=== PATIENT | female | born 1990 | race Caucasian/White ===

== ENCOUNTER 2023-12-10 12:04 | Outpatient (CLI) | payer OTHER, SELFPAY ==
--- NOTE | 2023-12-10 12:15 | CRLHL7_ITS ---
For Patients: As a result of the Cures Act, medical imaging exams and procedure reports are released immediately into your electronic medical record. You may view this report before your referring provider. If you have questions, please contact your health care provider. INDICATION: First trimester scan, establish dates. COMPARISON: None. TECHNIQUE: Real-time wheatley-scale imaging of the pelvis was performed. FINDINGS: Sonographic imaging demonstrates a single living intrauterine gestation. The embryo demonstrates a regular cardiac rate measuring 161 beats per minute. The embryo`s crown-rump length measurement of 1.5 cm corresponds to a gestational age of 7 weeks 6 days with a sonographic due date of 07/22/2024. There is a normal-appearing yolk sac. There are no gross abnormalities noted within the embryo at this early state of development. The gestational sac has a normal appearance. There is a 2.5 x 0.5 x 2.6 cm perigestational hemorrhage. The amount of fluid within the sac appears appropriate for gestational age. The cervix is closed. The myometrium appears normal. Simple right ovarian cyst is present measuring 3.0 cm. Normal left ovary. There are no suspicious fluid collections noted in the cul-de-sac. IMPRESSION: Single living intrauterine with sonographic gestational age 7 weeks 6 days and sonographic due date of 07/22/2024. Simple right ovarian cyst measuring 3 cm. Subchorionic hemorrhage measuring 2.5 x 0.5 x 2.6 cm. Dictated by Joao Brooks MD @ 12/11/2023 9:50:26 AM (Electronically Signed)
== END 2023-12-10 12:05 | disposition home or self-care (01) ==
PROVIDERS: Visit Provider Physician Assistant
DX: Z34.91 Encounter for supervision of normal pregnancy, unspecified, first trimester (principal); O34.81 Maternal care for other abnormalities of pelvic organs, first trimester; N83.201 Unspecified ovarian cyst, right side; O20.9 Hemorrhage in early pregnancy, unspecified; Z3A.01 Less than 8 weeks gestation of pregnancy
CPT/HCPCS: 76817; 82565; 82570; 84156; 84450; 84460; 84520; 86703; 86706; 86803; 86850; 86900; 86901; 87086; 87340; 87491; 87591

== ENCOUNTER 2023-12-10 13:18 | Outpatient (CLI) | payer OTHER, SELFPAY ==
[2023-12-10 18:57] LABS: Chlamydia DNA Amplified* NOT DETECTED (No Detected); GC DNA Amplified* NOT DETECTED (No Detected)
== END 2023-12-10 13:19 | disposition home or self-care (01) ==
PROVIDERS: Visit Provider Physician Assistant
DX: Z34.91 Encounter for supervision of normal pregnancy, unspecified, first trimester (principal)
CPT/HCPCS: 82565; 82570; 84156; 84450; 84460; 84520; 86592; 86703; 86704; 86706; 86762; 86787; 86803; 86850; 86900; 86901; 87086; 87340; 87491; 87591

== ENCOUNTER 2024-01-06 08:07 | Outpatient (CLI) | payer OTHER, SELFPAY | END 2024-01-06 08:08 | disposition home or self-care (01) | LOC: NFLDREF 01-08 19:44 | PROVIDERS: Visit Provider Physician Assistant | DX: Z34.91 Encounter for supervision of normal pregnancy, unspecified, first trimester (principal); Z3A.12 12 weeks gestation of pregnancy | CPT/HCPCS: 82570; 84156 ==

== ENCOUNTER 2024-01-07 14:25 | Outpatient (CLI) | payer OTHER, SELFPAY | END 2024-01-07 14:26 | disposition home or self-care (01) | LOC: NFLDREF 14:27 | PROVIDERS: Visit Provider Obstetrics & Gynecology | DX: Z13.88 Encounter for screening for disorder due to exposure to contaminants (principal) | CPT/HCPCS: 83655 ==

== ENCOUNTER 2024-03-03 13:56 | Outpatient (CLI) | payer BC, SELFPAY ==
--- NOTE | 2024-03-03 14:00 | CRLHL7_ITS ---
For Patients: As a result of the Century Cures Act, medical imaging exams and procedure reports are released immediately into your electronic medical record. You may view this report before your referring provider. If you have questions, please contact your health care provider. INDICATION: Evaluate anatomy. COMPARISON: 12/10/2023 TECHNIQUE: Real time wheatley scale imaging of the fetus was performed as well as color Doppler analysis of the umbilical vessels. FINDINGS: Sonographic imaging demonstrates a single living intrauterine gestation. Fetus demonstrates a regular cardiac rate of 155 beats per minute. Fetus has a variable position. The placenta lies anteriorly without evidence of placenta previa. Edge of the placenta 3.3 cm from the internal cervical os. Amniotic fluid volume appears normal. Single deepest vertical pocket: 4.6 cm. The cervix is closed and measures 5.0 cm in length. The composite ultrasound gestational age is calculated at 20 weeks 0 days with an estimated sonographic due date of 07/21/2024. The estimated weight is 320 grams which lies at the 25th %. The following biometric measurements were obtained: Biparietal diameter: 4.6 cm/19 weeks 6 days 32nd% Head circumference: 17.3 cm/19 weeks 6 days 23rd% Abdominal circumference: 14.4 cm/19 weeks 5 days 27th% Femur length: 3.2 cm/20 weeks 0 days 34th% The HC/AC ratio measures: 1.20 range (1.08-1.25) On anatomic survey, there is a normal appearance of the cerebral ventricles, cavum septi pellucidi, cisterna magna and cerebellum. The nose, lips, and facial profile appear normal. The cervical, thoracic and lumbar spine are well visualized and appear normal. Incomplete visualization of the four-chamber heart, RVOT and three-vessel trachea view. Normal LVOT the diaphragm and stomach appear normal. The kidneys and bladder also appear normal. There is a normal three-vessel cord and cord insertion site. The four extremities appear normal. IMPRESSION: Concordance of clinical and sonographic dating. Incomplete visualization of the four-chamber heart, RVOT and three-vessel trachea view. Short-term follow-up recommended. Remainder of the anatomic survey normal. Dictated by Joao Brooks MD @ 03/04/2024 1:28:31 PM (Electronically Signed)
== END 2024-03-03 13:57 | disposition home or self-care (01) ==
PROVIDERS: Visit Provider Obstetrics & Gynecology
DX: Z34.92 Encounter for supervision of normal pregnancy, unspecified, second trimester (principal); Z3A.20 20 weeks gestation of pregnancy
CPT/HCPCS: 76805

== ENCOUNTER 2024-03-04 19:22 | Outpatient (CLI) | payer BC, SELFPAY | END 2024-03-04 19:23 | disposition home or self-care (01) | LOC: NFLDREF 03-11 02:02 | PROVIDERS: Visit Provider Physician Assistant | DX: J02.9 Acute pharyngitis, unspecified (principal); R52 Pain, unspecified | CPT/HCPCS: 87651 ==

== ENCOUNTER 2024-03-07 11:49 | Outpatient (CLI) | payer BC, SELFPAY ==
--- NOTE | 2024-03-07 12:10 | CRLHL7_ITS ---
For Patients: As a result of the Century Cures Act, medical imaging exams and procedure reports are released immediately into your electronic medical record. You may view this report before your referring provider. If you have questions, please contact your health care provider. Indication: Acute pharyngitis Technique: Ultrasound of the cervical soft tissues. Sonographic wheatley-scale images were obtained with spectral and color Doppler waveform and spectral waveform analysis of the soft tissues in an area of palpable concern. Comparison: None available. Findings: There is demonstration of bilateral prominence of soft tissue seen in the submandibular space which may represent questionable markedly enlarged lymph nodes deep to the submandibular glands. There is minimal ill-defined vascularity appreciated. Impression: Demonstration of moderate hypoechoic soft tissue appreciated in the bilateral submandibular spaces which could represent underlying markedly enlarged lymph node versus inflammatory changes of the submandibular glands. If there is persistent clinical concern recommend further evaluation with contrast-enhanced CT versus MRI of the cervical soft tissues. Dictated by Geo Pearl MD @ 03/07/2024 1:17:44 PM (Electronically Signed)
== END 2024-03-07 11:50 | disposition home or self-care (01) ==
PROVIDERS: Visit Provider Family Medicine
DX: J02.9 Acute pharyngitis, unspecified (principal); J35.8 Other chronic diseases of tonsils and adenoids; R59.9 Enlarged lymph nodes, unspecified
CPT/HCPCS: 76536

== ENCOUNTER 2024-03-16 08:00 | Outpatient (CLI) | payer BC, SELFPAY | END 2024-03-16 08:01 | disposition home or self-care (01) | LOC: NFLDREF 03-24 06:55 | PROVIDERS: Visit Provider Internal Medicine Nephrology | DX: O12.10 Gestational proteinuria, unspecified trimester (principal) | CPT/HCPCS: 82570; 84156 ==

== ENCOUNTER 2024-03-31 13:35 | Outpatient (CLI) | payer BC, SELFPAY ==
--- NOTE | 2024-03-31 13:45 | CRLHL7_ITS ---
For Patients: As a result of the Century Cures Act, medical imaging exams and procedure reports are released immediately into your electronic medical record. You may view this report before your referring provider. If you have questions, please contact your health care provider. OB ULTRASOUND BIOPHYSICAL PROFILE, 03/31/2024 CLINICAL HISTORY: Followup 4 chamber heart, RVOT and 3VTV views. TECHNIQUE: Transabdominal OB ultrasound. COMPARISON: 03/03/2024. FINDINGS: Gestation: Single. GA: 24 weeks 2 days. Cervix: Not visualized. Positioning: Vertex. Amniotic Fluid: 5.9 cm. Placenta: Technique: TA. Placenta Position: Anterior. Dopplers Heart Rate: 142 bpm. IMPRESSION: 1. Normal IVC, SVC, aortic arch, LVOT, RVOT, 3 vessel view, 4 chamber heart and 3 vessel trachea view. 2. Placental whitman appears to be present measuring 2.1 cm. Joao Brooks M.D. Diagnostic Radiologist [employer] by [employer] [facility] [email or web address] Transcribed: 3:11 pm DW/Dictated by: Joao Brooks MD @ 03/31/2024 3:02:00 PM (Electronically Signed)
== END 2024-03-31 13:36 | disposition home or self-care (01) ==
LOC: US 13:36
PROVIDERS: PCP Family Medicine; Visit Provider Obstetrics & Gynecology
DX: O36.8320 Maternal care for abnormalities of the fetal heart rate or rhythm, second trimester, not applicable or unspecified (principal); Z3A.24 24 weeks gestation of pregnancy
CPT/HCPCS: 76816

== ENCOUNTER 2024-05-01 13:48 | Outpatient (CLI) | payer BC, SELFPAY | END 2024-05-01 13:49 | disposition home or self-care (01) | LOC: NFLDREF 05-05 06:00 | PROVIDERS: PCP Family Medicine; Referring Provider Family Medicine; Visit Provider Internal Medicine Nephrology | DX: O12.10 Gestational proteinuria, unspecified trimester (principal); Z3A.28 28 weeks gestation of pregnancy; Z11.59 Encounter for screening for other viral diseases; Z11.3 Encounter for screening for infections with a predominantly sexual mode of transmission | CPT/HCPCS: 82570; 84156; 86592; 86704; 86706; 87340 ==

== ENCOUNTER 2024-05-04 07:00 | Outpatient (CLI) | payer BC, SELFPAY | END 2024-05-04 07:01 | disposition home or self-care (01) | LOC: NFLDREF 05-05 07:33 | PROVIDERS: PCP Family Medicine; Referring Provider Family Medicine; Visit Provider Obstetrics & Gynecology | DX: O12.13 Gestational proteinuria, third trimester (principal); Z3A.28 28 weeks gestation of pregnancy | CPT/HCPCS: 82570; 84156 ==

== ENCOUNTER 2024-06-06 20:41 | Outpatient (CLI) | payer BC, SELFPAY ==
[2024-06-06 20:54] VITALS: PULSE 97; O2SAT 98
[2024-06-06 20:59] VITALS: PULSE 105; O2SAT 97
[2024-06-06 21:04] VITALS: PULSE 103; O2SAT 98
[2024-06-06 21:09] VITALS: BP 124/78; PULSE 93; RESP 18; TEMP 36.9
[2024-06-06 21:56] LABS: Appearance Urine Clear (Clear); Bilirubin Urine Negative (Negative); Blood Urine Negative (Negative); Color Urine Yellow (Yellow); Glucose Urine Negative (Negative); Ketones Urine Negative (Negative); Leukocyte Esterase Urine Negative (Negative); Nitrite Urine Negative (Negative); Protein Urine Negative (Negative); Specific Gravity Urine 1.015 (1.000-1.030); Urobilinogen Urine 0.2 (0.2-1.0)
[2024-06-06 22:11] LABS: Trichomonas No Trichomonas Seen (None Seen); Yeast No Yeast Seen (None Seen)
[2024-06-06 22:12] LABS: Clue Cells No Clue Cells Seen (None Seen)
[2024-06-06 22:39] LABS: Fetal Fibronectin* Negative (Negative)
--- NOTE | 2024-06-06 23:12 | PC.OBNST ---
NST Note NST Note Start: 06/06/24 20:46 Freq: ONCE Status: Active Protocol: Document 06/06/24 23:12 JADE (Rec: 06/06/24 23:12 JADE [id number]) NST Note 2 Para (# of births) 1 EDC 07/19/24 Gestational Age In Weeks & Days 33 Weeks & 6 Days Patient Presented with Complaint(s) of Contractions/cramping Reactive Yes Appropriate for Gestational Age Yes RN Jennifer RN Date 06/06/24 Reactive Yes Appropriate for Gestational Age Yes CHACE Mcmahon RN Date 06/06/24 OB NST charge Yes Complete NST Note via Write Note Yes The provider's electronic signature indicates the NST is reactive/appropriate for gestational age. *Note to provider: If an addendum is required, open the patient's chart and click on the note under the Nurse/Allied Health tab.
--- NOTE | 2024-06-24 17:54 | PC.OBNST ---
NST Note NST Note Start: 06/06/24 20:46 Freq: ONCE Status: Discharge Protocol: Document 06/06/24 23:12 JADE (Rec: 06/06/24 23:12 JADE [id number]) NST Note 2 Para (# of births) 1 EDC 07/19/24 Gestational Age In Weeks & Days 33 Weeks & 6 Days Patient Presented with Complaint(s) of Contractions/cramping Reactive Yes Appropriate for Gestational Age Yes RN Jennifer RN Date 06/06/24 Reactive Yes Appropriate for Gestational Age Yes CHACE Mcmahon RN Date 06/06/24 OB NST charge Yes Complete NST Note via Write Note Yes The provider's electronic signature indicates the NST is reactive/appropriate for gestational age. *Note to provider: If an addendum is required, open the patient's chart and click on the note under the Nurse/Allied Health tab.
== END 2024-06-06 23:09 | disposition home or self-care (01) ==
LOC: OB OUT 20:45 → OB 20:46
PROVIDERS: PCP Family Medicine; Visit Provider Obstetrics & Gynecology
DX: O47.03 False labor before 37 completed weeks of gestation, third trimester (principal); Z3A.33 33 weeks gestation of pregnancy
CPT/HCPCS: 59025; 81003; 84112; 87086; 87210; G0463

== ENCOUNTER 2024-06-19 09:08 | Outpatient (CLI) | payer BC, SELFPAY ==
[2024-06-20 10:07] LABS: Strep B DNA Probe Negative (Negative)
[2024-06-20 10:13] LABS: Strep B Susceptibility Needed? No
== END 2024-06-19 09:09 | disposition home or self-care (01) ==
LOC: NFLDREF 09:08
PROVIDERS: PCP Family Medicine; Visit Provider Obstetrics & Gynecology
DX: Z34.83 Encounter for supervision of other normal pregnancy, third trimester (principal)
CPT/HCPCS: 87081; 87653

== ENCOUNTER 2024-07-15 05:47 | Inpatient (IN) | payer BC, SELFPAY ==
[2024-07-15] VITALS (33 sets, daily range): BP systolic 101–139; BP diastolic 62–83; PULSE 65–171; RESP 16; TEMP 36.4–37.1; O2SAT 81–98; BMI 29.2
[2024-07-15 06:29] LABS: Basophils Absolute Auto 0.03 K/uL (0.00-0.30); Basophils Percent Auto 0.4 % (0.0-3.0); Eosinophils Absolute Auto 0.14 K/uL (0.00-0.50); Eosinophils Percent Auto 1.7 % (0.0-7.0); Hematocrit 35.4 % (33.0-51.0); Hemoglobin* 11.8 gm/dL (12.0-16.0); Immature Granulocytes Abs Auto 0.04 K/uL (0.00-0.30); Immature Granulocytes Pct Auto 0.5 %; Lymphocytes Absolute Auto 2.23 K/uL (0.90-2.90); Lymphocytes Percent Auto 27.1 % (20-44); Mean Corpuscular HGB Conc 33 gm/dL (32-36); Mean Corpuscular Hemoglobin 32 pg (26-34); Mean Corpuscular Volume 95 fL (80-100); Monocytes Percent Auto 7.8 % (0.0-11.0); Neutrophils Absolute Auto 5.15 K/uL (1.7-7.0); Neutrophils Percent Auto 62.5 % (42.0-72.0); Platelet Count* 182 K/uL (140-440); RDW Coefficient of Variation % 13.6 % (11.5-15.5); Red Blood Count 3.71 m/uL (4.00-5.20); White Blood Count* 8.23 K/uL (4.50-11.00)
[2024-07-15] MEDS: LACTATED RINGERS 1000 ML 1,000 ML IV ×2 (06:50→07:56)
[2024-07-15 06:51] LABS: Slide Review Reflex No
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
[2024-07-15] MEDS: CEFAZOLIN 2 GM INJ IVP (09:22)
--- NOTE | 2024-07-15 09:33 | P.ANES_ITS ---
Anesthesia Charges Start Date/Time Anesthesia Start Date: 07/15/24 Anesthesia Start Time: 09:02 Stop Date/Time Anesthesia Stop Date: 07/15/24 Anesthesia Stop Time: 10:37 Coding CPT Codes CPT Codes: ANESTH CS DELIVERY - 62282 ([id number]) P2 - PATIENT W/MILD SYST DISEASE, QK - MEDICAL TRANSCRIPTION RADIOLOGY 2-4 CNCRNT ANES PROC, QX - FIRER BOILER SVC W/ MD MED DIRECTION
--- NOTE | 2024-07-15 09:33 | W.ANESCHARGE ---
Anesthesia Charges Start Date/Time Anesthesia Start Date: 07/15/24 Anesthesia Start Time: 09:02 Stop Date/Time Anesthesia Stop Date: 07/15/24 Anesthesia Stop Time: 10:37 Coding CPT Codes CPT Codes: ANESTH CS DELIVERY - 65674 ([id number]) P2 - PATIENT W/MILD SYST DISEASE, QK - BAND LEADER 2-4 CNCRNT ANES PROC, QX - ARBORICULTURE INSTRUCTOR SVC W/ MD MED DIRECTION
[2024-07-15] MEDS: KETOROLAC 30 MG/ML inj IVP ×3 (10:17→22:20)
--- NOTE | 2024-07-15 10:18 | P.OBPRC_ITS ---
Procedure Time Seen by Provider: 10:30 Date of procedure: 07/15/24 Pre-op diagnosis: 39 weeks gestation, History of delivery, history of preeclampsia, history of mood disorder Post-op diagnosis: same Procedure Done: Global Will [facility] bill your pro fee for this procedure?: Yes Blood Loss Measurement Type: QBL (195) Bakri Used: No IV fluids (mL): 700 Urine Output (mL): 75 Urine Output Comment: Clear, yellow Surgeon: Diana Castro MD Anesthesia Type: Spinal Findings: Liveborn female fetus Unremarkable uterus, bilateral fallopian tubes and ovaries Slight adhesive disease noted of the subcutaneous tissue, rectus fascia and underlying musculature Procedure Name: Repeat delivery Pfannenstiel scar revision Procedure Description: Patient was taken to the operating room with IV running. She received cefazolin in preoperative prophylaxis. Spinal anesthesia was administered. Osorio catheter was inserted. She was prepped and draped in the usual sterile fashion. Anesthesia was tested and found to be adequate. A low-transverse skin incision was made just superior to her prior incision with a scalpel and carried through to the underlying layer of fascia with the scalpel. The subcutaneous fat was dissected off the underlying fascia with Bovie and blunt dissection, small volume dense adhesions noted. The fascia was nicked in the midline with a scalpel, and this incision was extended laterally with scissors. The rectus fascia was grasped and elevated with Jose clamps, to dissect the fascia off underlying musculature where small volume adhesion was noted related to prior surgery. Dissection occurred with a combination of sharp and blunt dissection. The rectus muscles were in the midline. Peritoneum was identified and entered bluntly. Bovie was used to widen this opening laterally. Jakob O retractor was inserted and tightened down, providing excellent visualization of the lower uterine segment. The bladder reflection was found to be well below advanced along the lower uterine segment. A bladder flap was created with a combination of sharp and blunt dissection. A dilated venous plexus was noted at the superior margin of the lower uterine segment, where care was made to stay inferior to this with creation of hysterotomy. Low-transverse uterine incision was made with a scalpel. Incision was widened bluntly. The 's head was grasped through the hysterotomy and elevated to the hysterotomy atraumatically. The remainder of the body delivered without incident with the help of fundal pressure. No nuchal cord was noted. Cord was clamped and cut after 30 seconds. Infant was handed off to attending nurses. The placenta was delivered with gentle traction on the cord. The uterus was cleaned of all clots and debris with the dry lap pad. IV pitocin was administered. The hysterotomy was reapproximated with 0 Vicryl in a running, locked fashion. Second layer of the same suture was used in imbricating fashion to obtain hemostasis. The adnexa were examined and noted to be normal in appearance. The cul-de-sac and gutters were cleansed with dampened laparotomy sponge, removing any further clots and debris. The Jakob O retractor was removed. The hysterotomy was reexamined and found to be hemostatic. The rectus muscles were examined and found to be hemostatic. The fascia was reapproximated with 0 Vicryl in a running fashion. Subcutaneous fat was irrigated and Bovie used on oozing vessels. Her previous keloid scar was grasped with Allis clamps, where a scalpel was utilized to transect the skin just inferior to her previous keloid scar. This incision met the lateral edges of the initial superior incision, thus excising the entire keloid and creating a thin elliptical incision. Addtional hemostasis was obtained with electrocautery as needed. The subcutaneous fat was less than 2cm in depth and thus did not require closure, but 3 interrupted sutures with 2-0 vicryl were applied to reduce tension across the incision. The skin was closed with a subcuticular stitch of 3-0 monocryl. Surgical glue was applied above this. details: - Liveborn female fetus - weight: 3200g - APGARs were 9 and 9 at 1 and 5 minutes respectively - Cord blood and cord gas were not sent Patient tolerated procedure well was taken to recovery area in stable condition. Surgical debrief was completed. Complications: None Pathology: none sent Surgery Debrief Performed: Yes Condition: stable Disposition: floor
--- NOTE | 2024-07-15 10:44 | P.ANES_ITS ---
Anesthesia Charges Start Date/Time Anesthesia Start Date: 07/15/24 Anesthesia Start Time: 09:02 Stop Date/Time Anesthesia Stop Date: 07/15/24 Anesthesia Stop Time: 10:37 Coding CPT Codes CPT Codes: ANESTH CS DELIVERY - 58723 ([id number]) P2 - PATIENT W/MILD SYST DISEASE, QK - SIGN BUILDER 2-4 CNCRNT ANES PROC, QX - DIRECTOR FINANCIAL PLANNING SVC W/ MD MED DIRECTION
--- NOTE | 2024-07-15 10:44 | W.ANESCHARGE ---
Anesthesia Charges Start Date/Time Anesthesia Start Date: 07/15/24 Anesthesia Start Time: 09:02 Stop Date/Time Anesthesia Stop Date: 07/15/24 Anesthesia Stop Time: 10:37 Coding CPT Codes CPT Codes: ANESTH CS DELIVERY - 96287 ([id number]) P2 - PATIENT W/MILD SYST DISEASE, QK - AEROTRIANGULATION SPECIALIST 2-4 CNCRNT ANES PROC, QX - ESTIMATOR LUMBER SVC W/ MD MED DIRECTION
--- NOTE | 2024-07-15 10:45 | W.PM.NB ---
Nerve Block Nerve Block Time Seen by Provider: 10:24 Date Seen: 07/15/24 Type of block requested by surgeon for post-operative analgesia: TAP Side: bilateral Time out performed: Yes Verification of patient name: Yes Verification of date of : Yes Site marking: site marked Name of person performing procedure: Rasheed Monroy Continuous monitoring Was continuous monitoring of O2 sat, B/P, lighting engineering technician, recorded every 15 minutes?: Yes Procedure Checklist: sterile prep, needles and gloves Ultrasound guided. Images saved: Yes Medications given in 5ml increments after negative aspiration: Marcaine %: 0.25 mL: 30 Needle gauge: 20 and Exparel mL: 10 Needle gauge: 20 Patient tolerated procedure well: Yes Additional comments: Injected in 5 mL increments after negative aspiration Block Charges Block Charge (with Pro Fee): TAP Bilateral Use of Ultrasound Machine for Block: Yes- US Guidance/pain block
[2024-07-15] MEDS: LACTATED RINGERS 1000 ML 1,000 ML 125 ML IV (12:30)
[2024-07-15] MEDS: ONDANSETRON 2 MG/ML inj 4 MG IVP (13:22)
[2024-07-16] VITALS (13 sets, daily range): BP systolic 98–123; BP diastolic 59–77; PULSE 75–82; RESP 14–18; TEMP 36.6–36.9; O2SAT 95–99
[2024-07-16] MEDS: KETOROLAC 30 MG/ML inj IVP (04:28)
[2024-07-16 06:27] LABS: Hemoglobin* 9.9 gm/dL (12.0-16.0)
[2024-07-16] MEDS: DOCUSATE SODIUM 100 MG CAPSULE PO (08:37)
[2024-07-16] MEDS: IBUPROFEN 600 MG TABLET PO ×3 (10:44→23:27)
[2024-07-16] MEDS: ACETAMINOPHEN 500 MG TABLET 1000 MG PO ×2 (12:56→19:56)
--- NOTE | 2024-07-16 13:05 | PM.OBPNVD1 ---
OB - PN:Subj Subjective Date Seen: 07/16/24 Patient comments OB post-: no complaints, pain well controlled, tolerating diet and flatus present [place] status: and doing well [place] feeding status: exclusively Narrative: Leonora feels well.? Her pain is well controlled with current medications.? She has no new complaints.? Urinary output is adequate and she is voiding without difficulty.? Has a good appetite, is tolerating a general diet, is passing flatus, and has not yet had a bowel movement.? Has scant amount of rubra lochia.? She is ambulating well.?She is and feels it is going good but is seeking help as needed. Will plan to restart her on an iron supplement due to Hgb 9.9 today. Denies complications on the supplement during . She would like to plan for discharge home tomorrow if things continue to go well for her and baby. OB - PN: Obj Exam Physical Exam: Vital signs: Temp Pulse Resp BP Pulse Ox O2 Del Method 98.1 F 78 16 114/77 98 Room Air 07/16/24 13:04 07/16/24 13:04 07/16/24 13:04 07/16/24 13:04 07/16/24 13:04 07/16/24 13:04 Narrative: GENERAL APPEARANCE:? normal affect, alert, no distress? MOOD:? appropriate? CHEST:? clear to auscultation and percussion? HEART:? regular rate and rhythm? ABDOMEN:? soft, non-tender the uterine fundus is U/3 and is appropriate for the stage of recovery. Incision dressing was removed. Incision is well approximated without erythema, drainage, or edema.? EXTREMITIES:? normal and no edema? OB - PN: Obj Data Labs Labs: Laboratory Results - last 24 hr 07/16/24 06:18 Hgb 9.9 L OB - PN: A/P Delivery Assessment and Plan (1) Proteinuria affecting : Status: Inactive (2) History of pre-eclampsia in prior , currently : Status: Acute (3) Lactating mother: Status: Acute (4) care following delivery: Status: Acute (5) anemia: Status: Acute Plan day: 1 Plan: routine care Comments: Patient desires discharge home tomorrow if criteria met.
[2024-07-16 16:11] LABS: Rapid Plasma Reagin (RPR) Non Reactive (Non Reactive)
[2024-07-16] MEDS: OXYCODONE 5 MG TABLET PO (23:27)
[2024-07-17] MEDS: ACETAMINOPHEN 500 MG TABLET 1000 MG PO ×2 (02:00→08:38)
[2024-07-17 03:33] VITALS: BP 129/77; PULSE 75; RESP 16; TEMP 36.8; O2SAT 98
[2024-07-17] MEDS: IBUPROFEN 600 MG TABLET PO (05:53)
[2024-07-17 07:47] VITALS: BP 132/82; PULSE 89; RESP 16; TEMP 37.1; O2SAT 99
--- NOTE | 2024-07-17 08:13 | PM.OBDSVD1 ---
DS: Providers Provider Date Seen: 07/17/24 Date of admission: 07/15/24 05:47 Primary care physician: Alla Chavez MD Admitting Clinician: Stacy Castro MD Attending Physician on discharge: Savanna Taveras CNM DS: Diagnosis Discharge Diagnosis (1) care following delivery: Status: Acute (2) Lactating mother: Status: Acute (3) anemia: Status: Acute Exam Narrative: Exam Narrative: Discharge instructions were reviewed with the patient including signs and symptoms of infection and home going medications Lifting Restrictions: 20 pounds for 6 weeks No not submerge incision under water X 2 weeks? Nothing vaginally for 6 weeks: no tampons or intercourse Do not drive while taking narcotic pain medication(s) Off Work or School for 8 weeks 2-week visit: incision check, discuss infant feeding concerns, review control options and screen for anxiety/depression. 6-week visit for an annual exam. consultation services are available to all mothers and babies for the first year after delivery.? To make an appointment, please call [phone]. Const: Vital Signs, click to edit/add: Vital Signs - 24 hr 07/16/24 08:29 07/16/24 08:31 07/16/24 13:04 Temperature 98.4 F 98.1 F Pulse Rate [Pulse Oximeter] 79 78 Respiratory Rate 18 14 16 Blood Pressure [Le ft Arm] 105/70 114/77 Pulse Oximetry 97 98 Oxygen Delivery Me thod Room Air Room Air 07/16/24 19:56 07/17/24 03:33 07/17/24 07:47 Temperature 97.9 F 98.3 F 98.7 F Pulse Rate [Pulse Oximeter] 77 75 89 Respiratory Rate 16 16 16 Blood Pressure [Le ft Arm] 123/75 129/77 132/82 Pulse Oximetry 99 98 99 Oxygen Delivery Me thod Room Air Room Air Room Air Documenting provider has reviewed patient's vital signs: yes OB - DS: Summary Hospital Course Hospital Course: Leonora is a 34 y.o. G 2 P 2 who was admitted to [facility] for spontaneous onset of labor. ?She had a repeat c/s that was uncomplicated. The patient feels well. ?The pain is well controlled with current medications. ?She has no new complaints. ?She is breast feeding and reports things are going well. the patient has done well.? Vitals have been stable.? She has remained afebrile.? Has a good appetite, is tolerating a general diet. ?She is voiding without difficulty.? She is passing gas and has not had a bowel movement.? She is ambulating and denies any dizziness.? Has small amount of rubra lochia. She is undecided on prevention. Problems: Anemia Discharge home with baby.? Follow up in 2 weeks and 6 weeks.? , may see if needed? Hgb 9.9. Iron supplement ordered orally every other day?? For pain control of perineum, breast and pelvic pain, take 600 mg Ibuprofen every 6 hours as needed by mouth or 1000 mg acetaminophen (Tylenol) every 6 hours by mouth as needed. You can alternate these so you are taking something every 3 hours as needed. A heating pad can also be used for your abdomen or breasts. You may also take docusate sodium up to twice daily to soften your stools and help to prevent constipation. You may wean off of it when your stools return to normal.? Peripartum Data delivery method: Repeat Section Procedures: Procedures Operation Date: 07/15/24 07:15 Actual Procedure Side Surgeon p Repeat Section, Scar Revision Stacy Castro MD complications: none Infant Gender: Female Discharge Plan: Home Status at Discharge Functional status at discharge: independent ambulation Overall status at discharge: patient is progressing back to baseline Time Spent with Patient Time attestation: Total time spent providing and/or coordinating discharge services: Time spent: Less than 30 minutes Discharge Plan Discharge Disposition: Home, Self-Care Date of Admission: 07/15/24 05:47 Attending Provider on Discharge: Savanna Taveras Primary Care Provider: Alla Chavez Condition: Stable Anticipated Discharge Date/Time: 07/17/24 12:00 Discharge Medications: New docusate sodium 100 mg Capsule 100 mg PO DAILY Qty: 60 0RF ferrous sulfate 325 mg (65 mg iron) Tablet 325 mg PO Q48H Qty: 60 0RF ibuprofen 600 mg Tablet 600 mg PO Q6H PRN (Reason: Pain) Qty: 60 0RF oxycodone 5 mg Tablet 5 - 10 mg PO Q4H PRN (Reason: Pain) Qty: 15 0RF acetaminophen 500 mg Tablet 1,000 mg PO Q6H PRN (Reason: Pain) Qty: 0 0RF Continued [id number] 3-fat com #1 27-1-300 mg capsule 1 cap PO DAILY cholecalciferol (vitamin D3) 250 mcg (10,000 unit) capsule 250 mcg PO QDAY Saccharomyces boulardii [Daily Probiotic (S. boulardii)] 250 mg capsule 250 mg PO BID docusate sodium 50 mg capsule 50 mg PO QDAY Discontinued aspirin [Adult Low Dose Aspirin] 81 mg tablet,delayed release (DR/EC) 81 mg PO QDAY Discharge Orders: Discharge Order (Routine); Ordered 07/17/24 Ordered By: Savanna Taveras Patient Education: OB Over the Counter Medication Information, OB Vaginal/Breast Feeding Additional Instructions: Discharge instructions were reviewed with the patient including signs and symptoms of infection and home going medications Lifting Restrictions: 20 pounds for 6 weeks No not submerge incision under water X 2 weeks? Nothing vaginally for 6 weeks: no tampons or intercourse Do not drive while taking narcotic pain medication(s) Off Work or School for 8 weeks 2-week visit: incision check, discuss infant feeding concerns, review control options and screen for anxiety/depression. 6-week visit for an annual exam. consultation services are available to all mothers and babies for the first year after delivery.? To make an appointment, please call [phone]. Activity Level: Activity as Tolerated Discharge Diet: Regular Follow Up Appointments: [facility] [Provider Group] Forms: [employer] Info Instructions
[2024-07-17] MEDS: DOCUSATE SODIUM 100 MG CAPSULE PO (08:39)
[2024-07-17] MEDS: FERROUS SULFATE 325 MG TABLET PO (08:39)
== END 2024-07-17 10:03 | disposition home or self-care (01) | DRG 540 ==
PROVIDERS: Admitting Provider Obstetrics & Gynecology; PCP Family Medicine; Visit Provider Obstetrics & Gynecology
PROC: 10D00Z1 Extraction of Products of Conception, Low, Open Approach (ICD-10-PCS; CPT 59514; principal; 2024-07-15 07:15)
DX: O34.211 Maternal care for low transverse scar from previous cesarean delivery (principal); O12.14 Gestational proteinuria, complicating childbirth; L91.0 Hypertrophic scar; G89.18 Other acute postprocedural pain; O99.02 Anemia complicating childbirth; D64.9 Anemia, unspecified; Z91.410 Personal history of adult physical and sexual abuse; Z86.19 Personal history of other infectious and parasitic diseases; Z86.59 Personal history of other mental and behavioral disorders; Z3A.39 39 weeks gestation of pregnancy; Z37.0 Single live birth
CPT/HCPCS: 01961; 36415; 64488; 76942; 85018; 85025; 86592; 86850; 86900; 86901; 94761; A4314; A9270; J0665; J0666; J0690; J1100; J1885; J2274; J2371; J2405; J2590; J7120

== ENCOUNTER 2024-11-06 15:10 | Outpatient (CLI) | payer BC, SELFPAY | END 2024-11-06 15:11 | disposition home or self-care (01) | LOC: NFLDREF 11-11 18:28 | PROVIDERS: PCP Family Medicine; Referring Provider Family Medicine; Visit Provider Internal Medicine Nephrology | DX: O12.10 Gestational proteinuria, unspecified trimester (principal) | CPT/HCPCS: 80061; 80069; 82043; 82570; 82728; 83540; 83550; 84450; 84460; 87086 ==

== ENCOUNTER 2024-11-09 07:00 | Outpatient (CLI) | payer BC, SELFPAY | END 2024-11-09 07:01 | disposition home or self-care (01) | LOC: NFLDREF 11-12 12:39 | PROVIDERS: PCP Family Medicine; Referring Provider Family Medicine; Visit Provider Internal Medicine Nephrology | DX: O12.10 Gestational proteinuria, unspecified trimester (principal) | CPT/HCPCS: 82570; 84156 ==